=== PATIENT | male | born 1970 ===

== ENCOUNTER 2021-06-07 18:43 | Emergency (ER) | payer OTHER ==
[~2021-06-07] VITALS: Ht 180.3 cm; Wt 80.7 kg
--- NOTE | 2021-06-07 18:47 | NUR ---
PT BIB PARAMEDICS CO GASSY STOMACH PER PT. PT RA 77%. NON-REBREATHER PLACED, IMPROVED TO 94%.
[2021-06-07] MEDS ORDERED: LIDOCAINE 2% (UROJET) 10 ML JELLY MM ONE (18:54)
--- NOTE | 2021-06-07 19:10 | NUR ---
NG TUBE PLACED PER PT RWEQUEST NAD ORDER, 200ML OUT PUT.
[2021-06-07] MEDS ORDERED: IV NORMAL SALINE 1000 ML BAG IV ONE (19:15)
[2021-06-07] MEDS ORDERED: ALBUTEROL SULFATE 2.5 MG/3 ML NEBU NEB ONE ×2 (19:15→20:45)
[2021-06-07] MEDS ORDERED: methylPREDNISolone SOD SUCC 125 MG/2 ML VIAL IV ONE (19:30)
[2021-06-07] MEDS ORDERED: IV NS 1000 ML 1,000 ML IV ONE (19:30)
[2021-06-07] MEDS ORDERED: ALBUTEROL SULFATE 2.5 MG/3 ML NEBU ONE ×2 (19:34→20:51)
[2021-06-07] MEDS ORDERED: methylPREDNISolone SOD SUCC 125 MG/2 ML VIAL ONE (19:36)
[2021-06-07 19:40] LABS: HEMATOCRIT 48.2 % (36.7-47.1); MEAN CORPUSCULAR HEMOGLOBIN 31.6 uug (23.8-33.4); MEAN CORPUSCULAR VOLUME 92.4 fL (73.0-96.2); PLATELET COUNT (AUTO) 550 K/uL (152-348)
[2021-06-07 19:44] LABS: CREATININE 1.2 mg/dL (0.6-1.3); POTASSIUM 4.1 mmol/L (3.5-5.1)
[2021-06-07] MEDS ORDERED: MAGNESIUM CITRATE 296 ML BOTTLE NG ONE (20:30)
[2021-06-07] MEDS ORDERED: BISACODYL 10 MG SUPP.RECT RC ONE ×2 (20:30→20:42)
--- NOTE | 2021-06-07 20:37 | NUR ---
PT BELCHING, ON NON-REBREATHER, SAT 94%
--- NOTE | 2021-06-07 20:40 | NUR ---
O2 SAT IMPROVED TO 98% ON NON-REBREATHER, WILL CONTINUE TO MONITOR THE PT.
[2021-06-07] MEDS ORDERED: MAGNESIUM CITRATE 296 ML BOTTLE ONE (20:43)
--- NOTE | 2021-06-07 20:51 | NUR ---
PT STILL UNABLE TO HOLD STILL FOR EKG, REQUESTING TO DO IT LATER.
--- NOTE | 2021-06-07 20:57 | NUR ---
RT AT BEDSIDE GIVING ANOTHER ROUND OF BREATHING TX,
--- NOTE | 2021-06-07 22:41 | NUR ---
DR OREILLY SPEAKING WITH [facility] WHO ACCEPTED PATIENT. WAITING FOR TRANSFER INFO.
--- NOTE | 2021-06-07 23:35 | NUR ---
Patient pulled NG tube stating "I feel better now. I want to go home." Patient denies SOB. O2 sat on RA is 95% with HR of 115. Dr Ziegler made aware.
[2021-06-07] MEDS ORDERED: PRED50TA PO (23:59)
[2021-06-07] MEDS ORDERED: ALBU8.5H8 INH (23:59)
--- NOTE | 2021-06-08 00:08 | NUR ---
Dr Ziegler into re eval patient.
[2021-06-08] MEDS ORDERED: ALBU2.5V13 NEB (00:17)
--- NOTE | 2021-06-08 00:18 | NUR ---
IV removed. Catheter intact and site benign. Pressure and 4x4 gauze applied to site. No bleeding noted.
--- NOTE | 2021-06-08 00:23 | NUR ---
Patient does not wish to proceed with medical care recommended by Dr. bowles ). Patient given information related to possible complications, up to and including , which could occur as a result of leaving the hospital at this time. Patient verbalizes understanding of risks involved due to leaving against medical advice. Patient has signed AMA form.
[2021-06-08 01:15] VITALS: BP 122/76
== END 2021-06-08 01:16 | disposition left against medical advice (07) ==
LOC: ER 18:45
DX: J45.902 Unspecified asthma with status asthmaticus (principal); J96.00 Acute respiratory failure, unspecified whether with hypoxia or hypercapnia; U07.1 COVID-19; R00.0 Tachycardia, unspecified; Z90.49 Acquired absence of other specified parts of digestive tract
CPT/HCPCS: 36415; 43752; 71045; 74018; 80048; 83735; 85025; 87426; 93005; 94644; 96361; 96374; 99285; J2930; J7030